=== PATIENT | male | born 2005 | race Caucasian/White ===

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

== ENCOUNTER → 2023-10-29 | Outpatient (CLI) | payer BC, SELFPAY ==
--- NOTE | 2023-10-29 16:58 | RAD_ITS ---
INDICATION: CONSTIPATION/BLOOD AND MUCUS IN STOOL COMPARISON: None. FINDINGS: 3 frontal views of the abdomen. Nonobstructive bowel gas pattern. No obvious free air. No definite suspicious calcifications. No mass appreciated. RAD/Abdomen Single View IMPRESSION: Unremarkable abdomen. Electronically Signed: Jaiden Vigil MD at 21:21 EDT ,
== END | disposition home or self-care (01) ==
LOC: MTRAD 16:57
PROVIDERS: PCP Family Medicine; Referring Provider Family Medicine; Visit Provider Family Medicine
DX: K92.1 Melena (principal); K59.00 Constipation, unspecified
CPT/HCPCS: 74018

== ENCOUNTER → 2023-10-31 | Outpatient (CLI) | payer BC, SELFPAY ==
[2023-10-31 12:44] LABS: Erythrocyte Sedimentation Rate 2 mm/hr (0-20)
[2023-10-31 12:45] LABS: Absolute Lymphocyte Count 2.18 X10^3/uL (0.83-4.51); Absolute Neutrophil Count 1.7 X10^3/uL (2.0-7.7); Basophil# 0.05 X10^3/uL; Basophil% 1.1 % (0-1); Eosinophil# 0.03 X10^3/uL; Eosinophils% 0.7 % (0-5); Hematocrit 45.9 % (40-54); Lymphocyte # 2.18 X10^3/ul (0.83-4.51); Lymphocyte % 47.8 % (19-41); Mean Corp Hgb Conc 34.9 g/dL (32-36); Mean Corpuscular Hgb 29.9 pg (27.0-32.0); Mean Corpuscular Volume 85.8 fL (80-94); Mean Platelet Vol. 9.2 fl (6.2-12.0); Monocyte# 0.55 X10^3/uL; Monocyte% 12.1 % (0-10); NRBC Flagged by Analyzer 0 % (0-5); Neutrophil # 1.74 X10^3/uL (2.7-7.7); Neutrophil % 38.1 % (47-70); POSITIVE MORPHOLOGY YES; Platelet Count 202 K/mm3 (150-450); RBC Distribution Width CV 12.2 % (11.6-14.6); RBC Distribution Width SD 38.5 fl (35.1-43.9); Red Blood Count 5.35 M/mm3 (4.6-6.2); White Blood Count 4.6 K/mm3 (4.4-11.0)
[2023-10-31 12:46] LABS: Differential Indicated SCAN CRITERIA MET
[2023-10-31 13:13] LABS: Atypical Lymphocyte 1+ %; Reactive Lymphocyte 1+
[2023-10-31 13:20] LABS: HIV - WCH Non-Reactive (Nonreactive)
[2023-10-31 14:07] LABS: ALB/GLOB Ratio 1.1 RATIO (0.9-2.4); AST(SGOT) 30 U/L (15-37); Alanine Aminotransfer ALT/SGPT 24 U/L (16-61); Alkaline Phosphatase 101 U/L (45-117); Anion Gap 7 (5-15); BUN 11 mg/dL (7-18); BUN/Creat Ratio 14.4 RATIO (10-20); Calcium,Total 8.8 mg/dL (8.5-10.1); Chloride 102 mmol/L (98-107); Creatinine, Serum 0.76 mg/dL (0.70-1.30); EST Glomerular Filtration Rate 139 mL/min (>60); Est Glom Filt Rate - Afr Amer 168 mL/min (>60); Globulin 3.8 g/dL (2.2-4.2); Glucose 83 mg/dL (74-106); Potassium 3.2 mmol/L (3.5-5.1); Protein, Total 7.8 g/dL (6.4-8.2); Sodium Level 136 mmol/L (136-145)
== END | disposition home or self-care (01) ==
LOC: BFHLAB 10:56
PROVIDERS: PCP Family Medicine; Visit Provider Family Medicine
DX: K62.5 Hemorrhage of anus and rectum (principal); R10.9 Unspecified abdominal pain
CPT/HCPCS: 36415; 80053; 85025; 85652; 86140; 86703

== ENCOUNTER 2023-11-09 12:07 | Outpatient (CLI) | payer BC, SELFPAY ==
--- NOTE | 2023-11-09 12:08 | CT_ITS ---
STUDY: CT ABDOMEN AND PELVIS WITH CONTRAST REASON FOR EXAM: Male, 17 years old. Perirectal pain RADIATION DOSAGE (If Supplied By Facility): CTDIvol = ( 9.23 ) mGy, DLP = ( 419.64 ) mGycm TECHNIQUE: Transaxial images were obtained from the dome of the diaphragm to the symphysis pubis with oral contrast. Oral and amp; IV Gastrografin and amp; 100mL Isovue-300 was administered. Sagittal and coronal images were reconstructed. Individualized dose optimization techniques were used for this CT. COMPARISON: None. FINDINGS: The visualized lung bases are unremarkable. The visualized portions of the heart are within normal limits. Normal liver. Normal gallbladder and extrahepatic biliary system. There is moderate splenomegaly at 16 cm.. Normal pancreas. Normal bilateral adrenal glands. Normal right kidney. Normal left kidney. Normal visualized stomach. Normal small intestine. Normal colon. There is non-visualization of the appendix. There is no CT evidence of perirectal thickening, inflammatory change in the pararectal fat or inflammatory change in the gluteal regions. Normal abdominal aorta. Normal inferior vena cava. Normal retroperitoneum. Normal urinary bladder. Normal abdominal wall. Normal osseous structures. CT/Abdomen/Pelvis WITH Contrast IMPRESSION: No CT evidence of rectal, or perirectal inflammation. No induration of the subcutaneous fat in the gluteal regions. Moderate splenomegaly at 16.4 cm, no discrete lesion No free intraperitoneal fluid, air, or suspicious adenopathy Electronically Signed: Laz Reddy MD at 14:02 EDT ,
[2023-11-09 15:53] LABS: Absolute Lymphocyte Count 9.95 X10^3/uL (0.83-4.51); Absolute Neutrophil Count 4.2 X10^3/uL (2.0-7.7); Basophil# 0.03 X10^3/uL; Basophil% 0.2 % (0-1); Eosinophil# 0.01 X10^3/uL; Eosinophils% 0.1 % (0-5); Hematocrit 44.8 % (40-54); Hemoglobin 15.2 g/dL (13.0-16.5); Lymphocyte # 9.95 X10^3/ul (0.83-4.51); Mean Corp Hgb Conc 33.9 g/dL (32-36); Mean Corpuscular Hgb 28.8 pg (27.0-32.0); Mean Corpuscular Volume 84.8 fL (80-94); Mean Platelet Vol. 9.2 fl (6.2-12.0); Monocyte# 1.34 X10^3/uL; Monocyte% 8.6 % (0-10); NRBC Flagged by Analyzer 0 % (0-5); Neutrophil # 4.17 X10^3/uL (2.7-7.7); Neutrophil % 26.8 % (47-70); POSITIVE DIFFERENTIAL YES; POSITIVE MORPHOLOGY YES; Platelet Count 252 K/mm3 (150-450); RBC Distribution Width CV 12.2 % (11.6-14.6); RBC Distribution Width SD 37.4 fl (35.1-43.9); Red Blood Count 5.28 M/mm3 (4.6-6.2); White Blood Count 15.5 K/mm3 (4.4-11.0)
[2023-11-09 15:56] LABS: Differential Indicated SCAN CRITERIA MET
[2023-11-09 16:19] LABS: Erythrocyte Sedimentation Rate 12 mm/hr (0-20)
[2023-11-09 16:22] LABS: Vitamin B12 533 pg/mL (211-911)
[2023-11-09 16:23] LABS: ALB/GLOB Ratio 0.9 RATIO (0.9-2.4); AST(SGOT) 67 U/L (15-37); Alanine Aminotransfer ALT/SGPT 62 U/L (16-61); Albumin, Serum 3.7 g/dL (3.2-5.0); Alkaline Phosphatase 114 U/L (45-117); Anion Gap 11 (5-15); BUN 10 mg/dL (7-18); BUN/Creat Ratio 13.6 RATIO (10-20); Calcium,Total 8.9 mg/dL (8.5-10.1); Chloride 99 mmol/L (98-107); Creatinine, Serum 0.74 mg/dL (0.70-1.30); EST Glomerular Filtration Rate 144 mL/min (>60); Est Glom Filt Rate - Afr Amer 174 mL/min (>60); Globulin 4.2 g/dL (2.2-4.2); Glucose 90 mg/dL (74-106); LDH 570 U/L (87-241); Potassium 3.6 mmol/L (3.5-5.1); Protein, Total 7.9 g/dL (6.4-8.2); Sodium Level 133 mmol/L (136-145)
[2023-11-14 15:08] LABS: Anti-Centromere B Ab <0.2 AI (0.0-0.9); Anti-Chromatin 0.2 AI (0.0-0.9); Anti-Jo <0.2 AI (0.0-0.9); Anti-Scleroderma-70 AB <0.2 AI (0.0-0.9); Anti-dsDNA Ab 1 IU/mL (0-9); Beef <0.10 kU/L (Class 0); Chocolate <0.10 kU/L (Class 0); Codfish <0.10 kU/L (Class 0); Corn <0.10 kU/L (Class 0); Egg, Whole <0.10 kU/L (Class 0); Milk (Cow) <0.10 kU/L (Class 0); Mussels <0.10 kU/L (Class 0); Peanut <0.10 kU/L (Class 0); Pork <0.10 kU/L (Class 0); RNP Ab 0.2 AI (0.0-0.9); SJOGREN'S Anti-SS-A test < 0.2 AI (0.0-0.9); SJOGREN'S Anti-SS-B test < 0.2 AI (0.0-0.9); Salmon <0.10 kU/L (Class 0); Shrimp <0.10 kU/L (Class 0); Smith Ab <0.2 AI (0.0-0.9); Soybean <0.10 kU/L (Class 0); Tuna <0.10 kU/L (Class 0); Vitamin D 1,25-Dihydroxy 68.9 pg/mL (24.8-81.5); Wheat <0.10 kU/L (Class 0)
[2023-11-15 13:08] LABS: ACCA 35 units (0-90); ALCA 29 units (0-60); AMCA 163 units (0-100); Albumin 3.4 g/dL (2.9-4.4); Alpha-1-Globulins 0.4 g/dL (0.0-0.4); Alpha-2-Globulins 0.9 g/dL (0.4-1.0); Chromogranin A 82.2 ng/mL (0.0-101.8); Cytoplasmic Ab (C-ANCA) <1:20 titer (Neg:<1:20); Endomysial Antibody IgA Negative (Negative); Gamma Globulin 1.6 g/dL (0.4-1.8); Gastrin, Serum 23 pg/mL (0-115); Immunoglobulin A 136 mg/dL (90-386); Immunoglobulin E 66 IU/mL (6-495); Immunoglobulin G 1424 mg/dL (671-1456); Immunoglobulin M 326 mg/dL (35-168); Perinuclear Ab (P-ANCA) <1:20 titer (Neg:<1:20); gASCA 28 units (0-50); t-Transglutaminase IgA <2 U/mL (0-3)
== END 2023-11-09 23:59 | disposition home or self-care (01) ==
PROVIDERS: PCP Family Medicine; Referring Provider Internal Medicine Gastroenterology; Visit Provider Internal Medicine Gastroenterology
DX: K61.1 Rectal abscess (principal)
CPT/HCPCS: 36415; 74177; 80053; 82607; 82652; 82784; 82785; 82941; 83516; 83615; 84165; 84443; 85025; 85652; 86003; 86005; 86036; 86140; 86225; 86235; 86255; 86256; 86316; 86334; 86671; Q9967

== ENCOUNTER → 2023-11-14 | Outpatient (CLI) | payer BC, SELFPAY ==
[2023-11-15 16:10] LABS: EBV Acute VCA IgM > 160.0 U/mL (0.0-35.9); EBV Nuclear Antigen IgG < 18.0 U/mL (0.0-17.9); EBV-VCA IgG 28.2 U/mL (0.0-17.9)
== END | disposition home or self-care (01) ==
LOC: LAB 11:55
PROVIDERS: PCP Family Medicine; Referring Provider Internal Medicine Gastroenterology; Visit Provider Internal Medicine Gastroenterology
DX: R16.1 Splenomegaly, not elsewhere classified (principal)
CPT/HCPCS: 36415; 86644; 86645; 86664; 86665

== ENCOUNTER 2023-11-21 08:35 | Day surgery (SDC) | payer BC, SELFPAY ==
[2023-11-21 09:05] VITALS: BP 99/78; PULSE 91; RESP 16; TEMP 36.6; O2SAT 100; BMI 16.8
[2023-11-21] MEDS: Lactated Ringers 1,000 ML 15 ML IV (09:05)
--- NOTE | 2023-11-21 09:30 | COLBX_PTH ---
PATIENT: JOAO PACHECO LOC: [facility] U#:[id number] AGE/SX: 17/M ROOM: RE11/21/[address]: Dr. Lonnie Coronado DO : 2005 BED: DIS: 11/21/2023 SPEC #: [id number] RECD: 11/21/23 12:39 STATUS: YOGESH MELISSA #: [id number] JEFFREY: 11/21/23 09:[address]: Lonnie Coronado DEPT: SURGICAL PATHOLOGY RECD BY: Aubrey Bolden ENTERED: 11/21/23 12:52 SP TYPE: COLON BX OTHR DR: Dr. Joe South DO Tissues: A - Ileum, NOS B - COLON BIOPSY C - Rectum, NOS Procedures: Surgery Specimen Level IV HEADER OPERATION: Colonoscopy with biopsy PRE-OP DIAGNOSIS: Perirectal abscess, abdominal pain TISSUE SUBMITTED: A- Terminal ilium biopsy, B- Random colon biopsy, C- Rectum biopsy MICROSCOPIC DIAGNOSIS A. Terminal ileum, biopsy: Fragments of small intestinal mucosa, no pathologic diagnosis. B. Colon, random biopsy: Focal chronic active colitis. See comment. C. Rectum, biopsy: Focal chronic active colitis. See comment. RODRICK/ 11/22/2023 COMMENT B. Focal cryptitits, crypt abscess, granuloma and minimal glandular distortion are noted. C. Focal ulceration, cryptitis, crypt abscesses, and glandular distortion are noted. The findings are suggestive of inflammatory bowel disease. Correlation with clinical, endoscopic findings and appropriate follow up are necessary. Case has been reviewed in consultation with Dr. Maher who concurs with the above diagnosis. IDC:AM MICROSCOPIC DESCRIPTION Slides are reviewed. GROSS DESCRIPTION A. Received in fixative is one container labeled with the patient's name and designated Terminal ileum biopsy. The specimen consists of two irregular fragments of light gerard soft tissue that in aggregate measure 0.8 x 0.4 x 0.1 cm. The specimen is totally submitted in one cassette. B. Received in fixative is one container labeled with the patient's name and designated Random colon biopsy. The specimen consists of multiple irregular fragments of light gerard soft tissue that in aggregate measure 1.5 x 0.8 x 0.1 cm. The specimen is totally submitted in one cassette. C. Received in fixative is one container labeled with the patient's name and designated Rectum biopsy. The specimen consists of multiple irregular fragments of light gerard soft tissue that in aggregate measure 1.0 x 0.4 x 0.1 cm. The specimen is totally submitted in one cassette. SJ/ 11/21/2023 TC:2 CPT:36749m2
--- NOTE | 2023-11-21 10:09 | PCM.HP.BLA ---
History and Physical Date of Admission: 12/06/23 JOAO PACHECO, is a 17 M who presents to the office today for intial visit OV 5.24.24 Pt states in September he started noticing blood in stools and in the toilet. He states he has consistent pain that changes depending of activity. He has not been eating very much to avoid having a BM which is resulting in weight loss. Pt takes pain medications. ROS Const Constitutional: Positive for fatigue and headache(s); No fever(s) or weight change ENT ENT: Positive for headache(s); No difficulty swallowing Gastro GI: Positive for abdominal pain, bloating, change in bowel habits, change in stool character, constipation, diarrhea, Blood in stool and nausea/dyspepsia; No belching, coffee ground emesis, cramping, heartburn, difficulty swallowing, feeling full early, excessive flatus, incontinent of stools, Vomiting blood/hematemesis, loose stools, Black,tarry stools, pain with swallowing, vomiting or other Musc Musculoskeletal: No joint pain Skin Skin: No yellowing of the eye or itchy eyes Neuro Neurology: Positive for headache(s) Psych Psychiatric: No anxiety and No depression Endo Endocrine: Positive for fatigue; No weight change Aller/Imm Allergy/Immunologic: No itchy eyes Imtiaz/Lymp Hematologic/Lymphatic: Positive for easy bleeding; No easy bruising Exam Const General: cooperative and comfortable Nutritional Appearance: average body habitus and well nourished [facility] Head: normal to inspection Ears: hearing grossly normal bilaterally Nose: external nose normal Face and sinus: normal facial exam Mouth: oral mucosae normal Throat: posterior oropharynx normal Eyes General: appearance normal, both eyes and all related structures Neck Neck: normal visual inspection Chest Chest palpation & inspection: normal inspection of the chest and normal palpation of entire chest wall Resp Effort & Inspection: normal respiratory effort Auscultation: Bilateral: Clear to Auscultation Cardio Palpation: normal PMI Rate: regular rate Rhythm: regular rhythm GI Inspection: normal to inspection Auscultation: normal bowel sounds Percussion: normal to percussion Palpation: no hepatosplenomegaly Skin General: no rashes or lesions noted Neuro General: patient alert Extrem General: normal to inspection Psych Affect: normal affect Assessment and Plan Assessment and Plan (1) Perirectal abscess: Status: Acute (2) Abdominal pain: Status: Acute Plan: -year-old gentleman with past medical history of chronic urticaria chronic abdominal pain arrives here with worsening anal pain. He was seen by general surgery to evaluate yesterday for anal pain and was diagnosed with an anal fissure. He was given a compound cream. It had some viscous lidocaine along with a smooth muscle relaxer. He is having pain. The pain is a little better with narcotics. He has been losing weight due to his abdominal pain and anal pain he also admits to fevers and some night sweats. Differential diagnosis for his anal pain with fevers and night sweats is a Perirectal abscess. He has a clear anal fissure on examination. I will give blood work to draw along with ordering a stat CT scan of the abdomen pelvis to look for perirectal abscess Orders: Orders CBC W/Diff, Automated Today K61.1 - Rectal abscess Celiac Disease Profile Today K61.1 - Rectal abscess MITRA + Protein Elect, Serum Today K61.1 - Rectal abscess LDH Today K61.1 - Rectal abscess ANCA Today K61.1 - Rectal abscess CRP Today K61.1 - Rectal abscess Erythrocyte Sed Rate Today K61.1 - Rectal abscess Comprehensive Metabolic Profil Today K61.1 - Rectal abscess Gastrin, Serum Today K61.1 - Rectal abscess Thyroid Stim Hormone (TSH) Today K61.1 - Rectal abscess Allergen, Food Profile 14 Today K61.1 - Rectal abscess Chromogranin A Today K61.1 - Rectal abscess MARIA EUGENIA Comprehensive Panel Today K61.1 - Rectal abscess Immunoglobulins G/A/M/E Today K61.1 - Rectal abscess Vitamin B12 Today K61.1 - Rectal abscess Vitamin D 1,25-Dihydroxy Today K61.1 - Rectal abscess IBD Expanded Profile Today K61.1 - Rectal abscess, R10.9 - Unspecified abdominal pain Abdomen/Pelvis WITH Contrast Today K61.1 - Rectal abscess, R10.9 - Unspecified abdominal pain I have examined the patient and the H&P has been reviewed. There are no clinical changes since date of exam.
[2023-11-21 10:36] VITALS: BP 91/57; BP 99/78; PULSE 70; RESP 16; TEMP 36.5; O2SAT 95
[2023-11-21 10:40] VITALS: BP 89/56; BP 99/78; PULSE 69; RESP 16; O2SAT 95
[2023-11-21 10:45] VITALS: BP 93/61; BP 99/78; PULSE 68; RESP 16; O2SAT 95
--- NOTE | 2023-11-21 10:47 | OP.COLON_ITS ---
Patient Name: Eddie Elliott Procedure Date: 11/21/2023 10:04 AM Date of : 2005 Age: 17 Procedure: Colonoscopy Indications: Hematochezia Providers: Lonnie Coronado DO Medicines: Monitored Anesthesia Care Patient Profile: This is a 17 year old male. Refer to note in patient chart for documentation of history and physical. Last Colonoscopy: none. The patient's first colonoscopy is today. Complications: No immediate complications. Procedure: Pre-Anesthesia Assessment: - Prior to the procedure, a History and Physical was performed, and patient medications and allergies were reviewed. The patient is competent. The risks and benefits of the procedure and the sedation options and risks were discussed with the patient. All questions were answered and informed consent was obtained. Patient identification and proposed procedure were verified by the physician in the pre-procedure area. Mental Status Examination: alert and oriented. Airway Examination: normal oropharyngeal airway and neck mobility. Respiratory Examination: clear to auscultation. CV Examination: normal. Prophylactic Antibiotics: The patient does not require prophylactic antibiotics. Prior Anticoagulants: The patient has taken no anticoagulant or antiplatelet agents. ASA Grade Assessment: II - A patient with mild systemic disease. After reviewing the risks and benefits, the patient was deemed in satisfactory condition to undergo the procedure. The anesthesia plan was to use monitored anesthesia care (MAC). Immediately prior to administration of medications, the patient was re-assessed for adequacy to receive sedatives. The heart rate, respiratory rate, oxygen saturations, blood pressure, adequacy of pulmonary ventilation, and response to care were monitored throughout the procedure. The physical status of the patient was re-assessed after the procedure. After I obtained informed consent, the scope was passed under direct vision. Throughout the procedure, the patient's blood pressure, pulse, and oxygen saturations were monitored continuously. The Colonoscope was introduced through the anus and advanced to the terminal ileum. The colonoscopy was performed without difficulty. The patient tolerated the procedure well. The quality of the bowel preparation was good. Scope In: 10:07:02 AM Scope Withdrawal Time 0 hours 15 minutes 53 seconds Scope Out: 10:30:19 AM Total Procedure Duration Time 0 hours 23 minutes 17 seconds Findings: An anal fissure was found on perianal exam. Localized moderate inflammation characterized by erosions, erythema, friability and granularity was found at the anus and in the rectum. Biopsies were taken with a cold forceps for histology. Verification of patient identification for the specimen was done. Estimated blood loss was minimal. A 6 mm anal fissure was found in the anal canal. Coagulation for hemostasis using argon plasma at 0.3 liters/minute and 15 moreno was successful. Estimated blood loss was minimal. An area of mildly congested mucosa was found in the sigmoid colon, in the transverse colon and in the ascending colon. Biopsies were taken with a cold forceps for histology. Verification of patient identification for the specimen was done. Estimated blood loss was minimal. The terminal ileum appeared normal. Biopsies were taken with a cold forceps for histology. Verification of patient identification for the specimen was done. Estimated blood loss was minimal. Impression: - Anal fissure found on perianal exam. - Localized moderate inflammation was found at the anus and in the rectum secondary to proctitis. Biopsied. - Anal fissure. Treated with argon plasma coagulation (APC). Recommendation: - Discharge patient to home. - Resume previous diet. - Continue present medications. - Await pathology results. - Repeat colonoscopy for surveillance. Procedure Code(s): --- Professional --- 21328, 59, Colonoscopy, flexible; with control of bleeding, any method 98915, Colonoscopy, flexible; with biopsy, single or multiple CPT copyright 2021 [employer]. All rights reserved. The codes documented in this report are preliminary and upon manager mutual fund review may be revised to meet current compliance requirements. Lonnie Coronado DO 11/21/2023 10:46:58 AM This report has been signed electronically. Number of Addenda: 0 Note Initiated On: 11/21/2023 10:04 AM
--- NOTE | 2023-11-21 10:47 | OP.CCLET_ITS ---
11/21/2023 Joe South [address] [place] [address] Re : Colonoscopy procedure for Eddie Elliott Dear Dr. South This procedure was performed on Tuesday, November 21, 2023. My impressions and recommendations are as follows: Impressions : - Anal fissure found on perianal exam. - Localized moderate inflammation was found at the anus and in the rectum secondary to proctitis. Biopsied. - Anal fissure. Treated with argon plasma coagulation (APC). Recommendations : - Discharge patient to home. - Resume previous diet. - Continue present medications. - Await pathology results. - Repeat colonoscopy for surveillance. My findings are described in the full procedure note, which is enclosed. If I can be of further assistance, please feel free to contact me at . Sincerely, Lonnie Coronado, 11/21/2023 10:46:58 AM This report has been signed electronically.
[2023-11-21 10:50] VITALS: BP 93/66; BP 99/78; PULSE 62; RESP 16; O2SAT 100
[2023-11-21 10:54] VITALS: BP 93/66; BP 99/78; PULSE 77; RESP 16; TEMP 36.4; O2SAT 100
== END 2023-11-21 11:22 | disposition home or self-care (01) ==
LOC: EN 08:38 → AC 08:39
PROVIDERS: PCP Family Medicine; Referring Provider Family Medicine; Visit Provider Internal Medicine Gastroenterology
PROC: 0DJD8ZZ Inspection of Lower Intestinal Tract, Via Natural or Artificial Opening Endoscopic (ICD-10-PCS; CPT 45378; principal; 2023-11-21 09:25)
DX: K60.2 Anal fissure, unspecified (principal); R10.9 Unspecified abdominal pain; K62.89 Other specified diseases of anus and rectum; K52.9 Noninfective gastroenteritis and colitis, unspecified
CPT/HCPCS: 45382; 45380; 88305; J7120; J2405

== ENCOUNTER → 2023-12-13 | Outpatient (CLI) | payer BC, SELFPAY ==
--- NOTE | 2023-12-13 09:00 | MRI_ITS ---
EXAM: MR ABDOMEN AND PELVIS WITH INTRAVENOUS CONTRAST CLINICAL INDICATION: R10.9 - Unspecified abdominal pain TECHNIQUE: Multiplanar and multisequence MR images of the abdomen and pelvis with intravenous contrast. Magnetic field strength 1.5 T. CONTRAST: 13 cc of Clariscan IV. COMPARISON: CT scan of the abdomen and pelvis 11/09/2023. FINDINGS: LOWER THORAX: Unremarkable. No pleural effusion. ABDOMEN: LIVER: Unremarkable. Normal morphology. No focal mass. GALLBLADDER AND BILE DUCTS: Unremarkable. No gallstones. No gallbladder distention or wall edema. No intra- or extrahepatic biliary ductal dilation. PANCREAS: Unremarkable. No focal cystic or solid mass. SPLEEN: Unremarkable. Normal size without focal cystic or solid mass. ADRENALS: Unremarkable. No nodules. KIDNEYS AND URETERS: Unremarkable. Normal renal size and position. No hydronephrosis. PELVIS: APPENDIX: No evidence of acute appendicitis. BLADDER: Unremarkable. PROSTATE: Unremarkable as visualized. No hypertrophy. No discrete nodule or mass. SEMINAL VESICLES: Unremarkable as visualized. No nodule or cyst. ABDOMEN and PELVIS: INTRAPERITONEAL SPACE: Unremarkable. No ascites or other fluid collection. VASCULATURE: Unremarkable. Abdominal aorta is non-dilated. LYMPH NODES: No enlarged lymph nodes. MRI/Enterography Abd/Pel IMPRESSION: Negative abdomen and pelvis MRI with intravenous contrast. Electronically Signed: Meir Aguilar MD at 22:33 EDT ,
[2023-12-13 10:03] VITALS: BP 114/60; PULSE 53; RESP 18; O2SAT 98; BMI 17.8
[2023-12-13] MEDS: 0.9% Saline Lock 10 ML Syringe IV ×2 (10:24→10:56)
[2023-12-13] MEDS: Glucagon 1 MG/ML Syringe IV (10:56)
[2023-12-13 11:16] VITALS: BP 113/69; PULSE 59; RESP 18; O2SAT 98
== END | disposition home or self-care (01) ==
PROVIDERS: PCP Family Medicine; Referring Provider Internal Medicine Gastroenterology; Visit Provider Internal Medicine Gastroenterology
DX: R10.9 Unspecified abdominal pain (principal); K61.1 Rectal abscess
CPT/HCPCS: 74183; 96374; A9575; A4216; J1610